=== PATIENT | male | born 1975 | race Caucasian/White ===

== ENCOUNTER 2017-04-19 14:49 | Emergency (ER) | payer BC ==
[2017-04-19 15:08] VITALS: TEMP 97.3
--- NOTE | 2017-04-19 15:18 | ED.PDOC ---
History of Present Illness - General Chief Complaint: Back Pain or Injury Stated Complaint: back pain Time Seen by Provider: 04/19/17 15:18 Source: patient - History of Present Illness Initial Comments: Chuy Valiente 42 y/o male with history of chronic low back pain stated that he had exacerbation of his sharp low back pain 3days ago radiating to lateral aspect both thighs and unable to walk straight due to pain. 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 Timing/Duration: other - 3 days ago Quality/Severity: sharpness Back Pain Location: lumbar spine Back Pain Radiation: buttocks, lower legs Method of Injury/Prior Injury: unknown Improving Factors: rest Worsening Factors: other - standing up Allergies/Adverse Reactions: Allergies NO KNOWN ALLERGY Allergy (Verified 04/19/17 15:08) Home Medications: Ambulatory Orders Gabapentin 300 mg PO BID #30 cap 04/19/17 Prednisone 10 mg PO BID #14 peter 04/19/17 Tizanidine HCl [Zanaflex] 4 mg PO BEDTIME #30 cap 04/19/17 Review of Systems - Review of Systems Constitutional: States: no symptoms reported EENTM: States: no symptoms reported Respiratory: States: no symptoms reported Cardiology: States: no symptoms reported Gastrointestinal/Abdominal: States: no symptoms reported Genitourinary: States: see HPI Musculoskeletal: States: see HPI, back pain Skin: States: no symptoms reported Neurological: States: paresthesia Endocrine: States: no symptoms reported Hematologic/Lymphatic: States: no symptoms reported Past Medical History (General) - Patient Medical History Hx Hypertension: Yes Hx Other PMH: Yes - chronic low back pain,neurogenic bladder Surgical History: other - urinary bladder stimulator - Vaccination History Hx Tetanus, Diphtheria Vaccination: No Hx Influenza Vaccination: No Hx Pneumococcal Vaccination: No - Social History Hx Tobacco Use: Yes Hx Alcohol Use: Yes - occasional Hx Substance Use: No Hx Substance Use Treatment: No Hx Depression: No - Activities of Daily Living Patient Lives Alone: Yes Hospice Agency (if applicable):: None - Female History Patient is a Female of Child Bearing Age (10 -59 yrs old): No Patient : No Family Medical History - Family History Mother Family History: Unknown Physical Exam - Physical Exam General Appearance: Alert, Comfortable, No apparent distress Eyes, Ears, Nose, Throat Exam: PERRL/EOMI, normal ENT inspection, TMs normal Neck Exam: non-tender, full range of motion, normal alignment, normal inspection Cardiovascular/Respiratory: regular rate, rhythm, no M/R/G, normal peripheral pulses, no JVD, no respiratory distress Peripheral Pulses: radial,right: 2+, radial,left: 2+ Gastrointestinal/Abdominal: normal bowel sounds, non tender, soft, no organomegaly, no pulsatile mass Back Exam: normal inspection, no CVA tenderness, no vertebral tenderness, decreased range of motion - because of pain Extremity Exam: no evidence of injury, normal range of motion, non-tender Neurologic: no motor/sensory deficits, alert, normal mood/affect, oriented x 3, other - DTR 2+ patellar bilaterally;positive straight leg raising test right leg 40 degrees neg left leg Skin Exam: normal color, warm/dry Progress - Results/Orders Results/Orders: Vital Signs - 8 hr 04/19/17 14:55 Temperature 97.3 F L Pulse Rate [ 98 H pulse ox] Respiratory 20 Rate Blood Pressure 103/72 [Left Arm] O2 Sat by Pulse 95 Oximetry 04/19/17 15:18 Head [CT] Stat Lumbar Spine [CT] Stat 04/19/17 15:49 URINE CULTURE W/COLONY COUNT Stat Laboratory Results WBC 7.7 K/mm3 (4.8-10.8) 04/19/17 15:30 RBC 4.38 M/mm3 (4.70-6.10) L 04/19/17 15:30 Hgb 14.2 gm/dL (14.0-18.0) 04/19/17 15:30 Hct 42.0 % (42.0-52.0) 04/19/17 15:30 MCV 95.9 fl (80.0-94.0) H 04/19/17 15:30 MCH 32.4 pg (27.0-31.0) H 04/19/17 15:30 MCHC 33.8 g/dL (33.0-37.0) 04/19/17 15:30 RDW 14.0 % (11.5-14.5) 04/19/17 15:30 Plt Count 192 K/mm3 (130-400) 04/19/17 15:30 MPV 8.8 fl (7.40-10.4) 04/19/17 15:30 Absolute Neuts (auto) 4.90 K/uL (1.8-6.8) 04/19/17 15:30 Absolute Lymphs (auto) 1.70 K/uL (1.0-3.4) 04/19/17 15:30 Absolute Monos (auto) 0.90 K/uL (0.2-0.8) H 04/19/17 15:30 Absolute Eos (auto) 0.20 K/uL (0.0-0.4) 04/19/17 15:30 Absolute Basos (auto) 0.10 K/uL (0.0-0.1) 04/19/17 15:30 Neutrophils % 63.7 % (42.0-78.0) 04/19/17 15:30 Lymphocytes % 21.7 % (20.0-50.0) 04/19/17 15:30 Monocytes % 11.1 % (2.0-9.0) H 04/19/17 15:30 Eosinophils % 2.2 % (1.0-5.0) 04/19/17 15:30 Basophils % 1.3 % (0.0-2.0) 04/19/17 15:30 Sodium 139 mmol/L (135-145) 04/19/17 15:30 Potassium 4.2 mmol/L (3.6-5.0) 04/19/17 15:30 Chloride 109 mmol/L (101-111) 04/19/17 15:30 Carbon Dioxide 23 mmol/L (21-31) 04/19/17 15:30 Anion Gap 11.2 (12-18) L 04/19/17 15:30 BUN 18 mg/dL (7-18) 04/19/17 15:30 Creatinine 1.11 mg/dL (0.6-1.3) 04/19/17 15:30 BUN/Creatinine Ratio 16.2 (10-20) 04/19/17 15:30 Random Glucose 116 mg/dL (70-105) H 04/19/17 15:30 Serum Osmolality 280.4 mOsm/L (275-295) 04/19/17 15:30 Calcium 8.9 mg/dL (8.4-10.2) 04/19/17 15:30 Total Bilirubin 0.8 mg/dL (0.2-1.0) 04/19/17 15:30 AST 147 IU/L (10-42) H 04/19/17 15:30 ALT 82 IU/L (10-60) H 04/19/17 15:30 Alkaline Phosphatase 79 IU/L (42-121) 04/19/17 15:30 Serum Total Protein 7.5 gm/dL (6.4-8.2) 04/19/17 15:30 Albumin 4.0 g/dl (3.2-5.5) 04/19/17 15:30 Globulin 3.5 gm/dL (2.3-3.5) 04/19/17 15:30 Albumin/Globulin Ratio 1.1 (1.1-1.9) 04/19/17 15:30 Urine Color Yellow (Yellow) 04/19/17 15:31 Urine Appearance Clear (Clear) 04/19/17 15:31 Urine pH 6.0 (4.5-7.8) 04/19/17 15:31 Ur Specific [place] 1.025 (1.005-1.030) 04/19/17 15:31 Urine Protein 30 mg/dL 04/19/17 15:31 Urine Glucose (UA) Negative mg/dL (Negative) 04/19/17 15:31 Urine Ketones Trace mg/dL (NEGATIVE) 04/19/17 15:31 Urine Blood Negative (Negative) 04/19/17 15:31 Urine Nitrite Negative 04/19/17 15:31 Urine Bilirubin Small (NEGATIVE) H 04/19/17 15:31 Urine Urobilinogen 1.0 mg/dL (0.2-1.0) 04/19/17 15:31 Ur Leukocyte Esterase Negative (Negative) 04/19/17 15:31 Urine RBC 0-1 /hpf 04/19/17 15:31 Urine WBC 5-10 /hpf H 04/19/17 15:31 Ur Epithelial Cells 5-10 /hpf 04/19/17 15:31 Urine Bacteria 2+ H 04/19/17 15:31 Urine Mucus Small 04/19/17 15:31 Urine Opiates Screen Negative ng/mL (1999) 04/19/17 15:30 Urine Barbiturates Negative ng/mL (200) 04/19/17 15:30 Ur Phencyclidine Scrn Negative ng/mL (25) 04/19/17 15:30 U Amphetamin/Meth Scrn Negative ng/mL (1000) 04/19/17 15:30 U Benzodiazepines Scrn Negative ng/mL (200) 04/19/17 15:30 U Cocaine Metab Screen Negative ng/mL (300) 04/19/17 15:30 U Cannabinoids Screen Negative ng/mL (50) 04/19/17 15:30 - EKG/XRAY/CT CT: lumbar spine-degenerative changes per radiologist CT Ordered: Yes - head-no acute abnormalities noted Departure - Departure Clinical Impression: Lumbar radiculopathy, chronic, Numbness and tingling of left leg Time of Disposition: 17:09 Disposition: Discharge to Home or Self Care Condition: Fair Departure Forms: ED Discharge - Pt. Copy, Patient Portal Self Enrollment Instructions: DI for Back Pain With Sciatica Prescriptions: Gabapentin 300 mg PO BID #30 cap Prednisone 10 mg PO BID #14 peter Tizanidine HCl [Zanaflex] 4 mg PO BEDTIME #30 cap Home Medications: Ambulatory Orders Gabapentin 300 mg PO BID #30 cap 04/19/17 Prednisone 10 mg PO BID #14 peter 04/19/17 Tizanidine HCl [Zanaflex] 4 mg PO BEDTIME #30 cap 04/19/17 Additional Instructions: NEED TO SIGN UP WITH PRIMARY MD
--- NOTE | 2017-04-19 16:17 | CT ---
PROCEDURE: CT brain without contrast CLINICAL HISTORY: 42 years Male pain COMPARISON: None. TECHNIQUE: Contiguous axial images obtained through the brain without IV contrast. This exam was performed according to our department optimization program which includes automated exposure control, adjustment of the mA and/or kv according to patient size and/or use of iterative reconstruction technique. FINDINGS: The ventricles and sulci are prominent consistent with atrophic changes. No mass lesions. No acute hemorrhage. Atherosclerotic calcifications. No fluid or significant mucosal thickening in the visualized paranasal sinuses. No depressed calvarial fractures. IMPRESSION: No acute intracranial abnormality is identified. Electronically signed by: Aziza Branch 04/19/2017 4:17 PM CDT
--- NOTE | 2017-04-19 16:38 | CT ---
PROCEDURE: Lumbar Spine CLINICAL HISTORY: 42 years ,Male ,pain COMPARISON: None. TECHNIQUE: Contiguous axial images obtained through the lumbar spine without IV contrast. Coronal and sagittal reformatted images obtained. This exam was performed according to our department optimization program which includes automated exposure control, adjustment of the mA and/or kv according to patient size and/or use of iterative reconstruction technique. FINDINGS: Vertebral body alignment unremarkable. No acute lumbar spine fractures. T11-12, T12-L1, L1-L2 levels are unremarkable.. L2-L3: Mild bulging of the disc and facet arthropathy with flattening of the anterior aspect of the thecal sac. L3-4: Mild disc bulging with flattening the anterior aspect of the thecal sac. L4-5: Mild bulging of the disc resulting in mild narrowing of the central canal. L5-S1: Small central disc protrusion without central canal stenosis. Vascular calcification. There is a catheter in the soft tissues posterior to the sacrum. IMPRESSION: No acute lumbar spinal fracture is identified. . Mild degenerative changes as described Electronically signed by: Aziza Branch 04/19/2017 4:39 PM CDT
[2017-04-19] MEDS ORDERED: ORPHENADRINE CITRATE 30 MG/ML AMP IM ONE (17:10)
[2017-04-19] MEDS ORDERED: KETOROLAC TROMETHAMINE INJ 60 MG/2 ML VIAL IM ONE (17:10)
[2017-04-19 17:31] VITALS: BP 108/72; O2SAT 98
== END 2017-04-19 17:39 | disposition home or self-care (01) ==
LOC: ER 14:49
DX: M54.16 Radiculopathy, lumbar region (principal); R20.0 Anesthesia of skin; I10 Essential (primary) hypertension; N31.9 Neuromuscular dysfunction of bladder, unspecified; Z87.891 Personal history of nicotine dependence; Z96.0 Presence of urogenital implants